=== PATIENT | male | born 1965 | race Caucasian/White ===

== ENCOUNTER 2021-09-08 22:26 | Emergency (ER) | payer OTHER ==
[~2021-09-08 22:26] MED LIST: CLEOCIN HCL150 MG PO; NORCO 5-325 TA1 EACH PO
[2021-09-09 03:19] LABS: BASOPHIL 0.2 % (0-2); EOSINOPHIL 0 % (0-5); HCT 42.7 % (42.0-52.0); HGB 15.4 g/dl (13.2-18.0); LYMPHOCYTE 17.9 % (15-48); MCH 32.1 pg (25.0-31.0); MCHC 36.1 g/dL (32.0-36.0); MONOCYTE 3.3 % (0-12); NEUTROPHIL 77.9 % (41-80); NRBC 0; PLT 209 K/uL (150-400); RDW 11.9 % (11.5-14.0); WBC 4.2 K/uL (4.0-10.5)
[2021-09-09 03:40] LABS: BUN/CREAT RATIO (CALC) 13.7 RATIO; CREATININE 0.95 mg/dL (0.67-1.17); POTASSIUM 4.4 mmol/L (3.5-5.1)
[2021-09-09] MEDS ORDERED: ATROVENT HFA12.9 GM INH (05:24)
[2021-09-09] MEDS ORDERED: PULMICORT FLE180 MCG INH (05:24)
[2021-09-09] MEDS ORDERED: DEXAMETHASONE 2M2 MG PO (05:24)
[2021-09-09] MEDS ORDERED: TESSALON PERLE100 MG PO (05:25)
== END 2021-09-09 06:05 | disposition home or self-care (01) ==
LOC: FER 22:26
PROVIDERS: Emergency Medicine Emergency Medical Services
DX: U07.1 COVID-19 (principal); J45.901 Unspecified asthma with (acute) exacerbation; Z88.1 Allergy status to other antibiotic agents; Z79.899 Other long term (current) drug therapy
CPT/HCPCS: 36415; 36600; 71045; 80048; 82803; 83880; 84484; 85025; 85379; 93005; 94640; 94664; J0696; J1100; J1885; J7030